=== PATIENT | male | born 1950 | race Caucasian/White ===

== ENCOUNTER → 2023-12-23 07:32 | Outpatient (REF) | payer OTHER, SELFPAY | LOC: EMG 07:32 | PROVIDERS: ATTENDING PHYSICIAN Student in an Organized Health Care Education/Training Program; FAMILY PHYSICIAN Internal Medicine | DX: M79.641 Pain in right hand (principal); M79.642 Pain in left hand; R20.0 Anesthesia of skin | CPT/HCPCS: 95886; 95911 ==

== ENCOUNTER → 2024-01-14 07:38 | Outpatient (REF) | payer OTHER, SELFPAY | LOC: EMG 07:38 | PROVIDERS: ATTENDING PHYSICIAN Podiatrist Foot & Ankle Surgery; FAMILY PHYSICIAN Internal Medicine | DX: R60.0 Localized edema (principal); I87.2 Venous insufficiency (chronic) (peripheral); R20.0 Anesthesia of skin | CPT/HCPCS: 95886; 95911 ==

== ENCOUNTER → 2024-04-06 07:36 | Outpatient (REF) | payer OTHER, SELFPAY | LOC: EMG 07:36 | PROVIDERS: ATTENDING PHYSICIAN Orthopaedic Surgery Hand Surgery; FAMILY PHYSICIAN Internal Medicine | DX: M79.602 Pain in left arm (principal); R20.0 Anesthesia of skin | CPT/HCPCS: 95886; 95909 ==

== ENCOUNTER → 2024-05-11 10:14 | Outpatient (REF) | payer OTHER, SELFPAY | LOC: RCS 10:14 | PROVIDERS: ATTENDING PHYSICIAN Orthopaedic Surgery Hand Surgery | DX: Z01.818 Encounter for other preprocedural examination (principal) | CPT/HCPCS: 93005 ==